=== PATIENT | female | born 1975 | race Caucasian/White ===

== ENCOUNTER → 2016-10-04 | Outpatient (CLI) | payer OTHER ==
[~2016-10-04] MED LIST: ADDERALL 20 MG20 M1 PO; ALPRAZOLAM ER2 MG PO; ALPRAZOLAM2 MG PO; ATIVAN1 MG PO; ATIVAN2 MG PO; AUGMENTIN 250-1 EACH PO; BACTRIM DS TAB1 EACH PO; CIPROFLOXACIN500 M1 PO; CYMBALTA60 MG PO; ENDOCET 5-3251 EACH PO; FLAGYL500 MG PO; LAMICTAL XR300 MG PO; LEVAQUIN 500 M500 M2 PO; MOTRIN100 M1 PO; NORCO 5-325 TA1 EACH PO; OXYIR 5 MG CAPSU5 M1 PO; OXYIR5 MG PO; PERCOCET 7.5-51 EACH PO; PROVERA10 MG PO; SAPHRIS5 MG SL; SIMETHICON CHEW80 M1 PO; SIMVASTATIN20 MG PO; TESSALON PERLE100 MG PO; ZOFRAN 4 MG ORAL4 M1 DIS
== END ==
LOC: RAD 07:47
DX: N60.01 Solitary cyst of right breast (principal); R92.0 Mammographic microcalcification found on diagnostic imaging of breast

== ENCOUNTER → 2016-10-05 | Outpatient (CLI) | payer OTHER ==
--- NOTE | ~2016-10-05 | S ---
[facility] [place] [address] SURGICAL PATH RPT PROCEDURE Name: [facility]ECK [id number] Admission: 10/05/16 Date of : 75 Discharge: Report #: [id number] Path Case #: [id number] PATHOLOGY REPORT COLLECTION DATE: 10/05/2016 RECEIVED DATE: 10/06/2016 SUBMITTING PHYS: Dr. Qasim Whittington OTHER PHYS: Dr. Jere Gilmore SPECIMEN(S) RECEIVED: A.Stereo right lateral * * * * * * * * * * * * FINAL DIAGNOSIS: Breast, right lateral, stereotactic needle core biopsy: - Benign breast tissue with dilated ducts, stromal fibrosis, as well as adenosis. - Calcium oxalate crystals identified within dilated ducts associated with inflammatory response. - Negative for atypia or malignancy. COMMENT: Co-review: Dr. Nasir Bautista. (IUV:csd; d/t: 10/07/2016) PATHOLOGIST: Debi Orta M.D. REPORT ELECTRONICALLY SIGNED BY: Debi Orta M.D. DATE/TIME: 10/07/2016 16:45 * * * * * * * * * * * * GROSS PATHOLOGY: Received in formalin labeled "Jasson Beck and right breast," are several needle cores of yellow-ibarra fibrofatty tissue measuring 2.8 x 1.3 x 0.3 cm in aggregate dimensions. Also received is a plastic cassette containing multiple cores of yellow-ibarra fibrofatty tissue measuring 2.5 x 2.0 x 0.5 cm in aggregate dimensions. The tissue in the cassette is transferred to cassettes A1-A2, and the remaining tissue is submitted in its entirety in cassettes A3-A4. The cold ischemic time is 5 minutes. The total formalin fixation time is 8 hours and 10 minutes. (TTL; 10/06/2016) CLINICAL HISTORY: [facility] [address] [place] [address] SURGICAL PATH RPT PROCEDURE Name: JASSON BECK Room #: REG [facility].#: [id number] Admission: 10/05/16 Date of : 75 Discharge: Report #: [id number] Path Case #: [id number] INITIAL CPT CODE(S): A; 22306 Professional services performed by [facility] at [address], [place] [address] Technical services performed by [facility] at [address] [place] [address], [facility] [address], [place] [address]. [facility] [place] [address] PHONE: [phone] DIRECTOR: Gabriel Joseph M.D. * * * END OF REPORT * * *
== END ==
LOC: RAD 13:08
DX: R92.1 Mammographic calcification found on diagnostic imaging of breast (principal)

== ENCOUNTER → 2016-10-18 | Outpatient (CLI) | payer OTHER | LOC: ULTRA 08:22 | DX: N83.201 Unspecified ovarian cyst, right side (principal); Z90.710 Acquired absence of both cervix and uterus; Z90.721 Acquired absence of ovaries, unilateral ==